=== PATIENT | male | born 1990 ===

== ENCOUNTER 2018-04-04 08:50 | Day surgery (SDC) | payer OTHER ==
[~2018-04-04 08:50] MED LIST: Acetaminophen-Codeine 300/30 mg Tab PO PRN; Dextrose 5%/0.45% NS 1,000 ML IV SCH
[2018-04-04] MEDS ORDERED: ceFAZolin 1 gm in NS 1 GM/100 ML BAG IVPB ONE (09:02)
[2018-04-04] MEDS ORDERED: Oxymetazoline 0.05% Nasal Spray (30 ml) NS ONE (09:03)
[2018-04-04] MEDS ORDERED: Lidocaine/Epinephrine 1% 1:100000 10 ML IJ ONE (09:03)
[2018-04-04 09:23] LABS: BASO # 0.1 K/uL (0.0-0.2); BASO % 0.9 % (0.0-2.0); EOS # 0.1 K/uL (0.0-0.7); EOS % 1.7 % (0.0-4.0); HEMOGLOBIN 15.1 g/dL (12.0-18.0); LYMPH # 1.3 K/uL (1.0-4.3); LYMPH % 18.8 % (20.0-40.0); MEAN CELL VOLUME 91.4 fL (80.0-94.0); MEAN CORPUSCULAR HEMOGLOBIN 32.9 pg (27.0-31.0); MEAN PLATELET VOLUME 8.2 fL (7.2-11.7); MONO # 0.6 K/uL (0.0-0.8); MONO % 8.8 % (0.0-10.0); NEUT # 4.9 K/uL (1.8-7.0); NEUT % 69.8 % (50.0-75.0); RBC 4.58 Mil/uL (4.40-5.90); RED CELL DISTRIBUTION WIDTH 12.1 % (11.5-14.5)
[2018-04-04 09:28] LABS: INR 1.1; PROTHROMBIN TIME 12.4 SECONDS (9.7-12.2)
[2018-04-04 09:50] LABS: BLOOD UREA NITROGEN 17 mg/dL (9-20); CALCIUM 9.2 mg/dl (8.6-10.4); GFR AFRICAN-AMERICAN > 60; GFR NON-AFRICAN AMERICAN > 60
[2018-04-04] MEDS ORDERED: Sodium Chloride 0.9% 500 ML IV ONE (10:00)
[2018-04-04] MEDS ORDERED: Lactated Ringer's 1,000 ML IV ONE ×2 (10:00→10:45)
[2018-04-04] MEDS ORDERED: Propofol 10 mg/ml Inj (20 ML) ONE ×2 (10:04→10:35)
[2018-04-04] MEDS ORDERED: Midazolam 2 MG/2 ML VIAL ONE (10:04)
[2018-04-04 12:23] VITALS: RESP 16; TEMP 97.6
[2018-04-04 12:26] VITALS: BP 124/82; PULSE 69; O2SAT 99
--- NOTE | 2018-04-04 15:20 | OP ---
PROCEDURE DATE: 04/04/2018 PREOPERATIVE DIAGNOSIS: A nasopharyngeal mass. POSTOPERATIVE DIAGNOSIS: A nasopharyngeal mass. PROCEDURE: Endoscopic nasopharyngeal mass biopsy. SIGNIFICANT FINDINGS: Nasopharyngeal mass. DESCRIPTION OF PROCEDURE: The patient was brought into the room, placed in the supine position. Anesthesia was initiated through an ET tube. Afrin-soaked pledgets were inserted into the nasal cavity. They remained there for 5 minutes and removed. A 0-degree scope was inserted into the nasal cavity past the nasopharynx. Nasopharyngeal mass was noted. Multiple biopsies were taken. Bleeding was controlled using suction cautery. The scope was removed. The patient was taken off the anesthesia and taken to the recovery room in stable manner. Byron Mosqueda MD
== END 2018-04-04 12:40 | disposition home or self-care (01) ==
LOC: C.SDS 08:50
PROVIDERS: ATTEND Otolaryngology
DX: D49.89 Neoplasm of unspecified behavior of other specified sites (principal)
CPT/HCPCS: 31237; 36415; 80048; 85025; 85610; 85730; 88304; J0131; J0690; J2250; J2704; J3010; J7030; J7120